=== PATIENT | female | born 1945 | race Two or more races ===

== ENCOUNTER 2019-08-29 20:08 | Inpatient (IN) | payer MEDICAID ==
[~2019-08-29] VITALS: Ht 157.5 cm; Wt 54.0 kg
--- NOTE | 2019-08-29 20:20 | NUR ---
RT NOTE PT RECEIVED TRACHED ON MECHANICAL VENTILATION. SHILEY [address] PT AWAKE, NONVERBAL. SX DONE, SMALL THICK YELLOW WHITE SECRETIONS NOTED. ALARMS ON AND AUDIBLE. VENT PLUGGED TO RED OUTLET. NO DISTRESS NOTED AT THIS TIME. WILL CONTINUE TO MONITOR. Addendum: 08/30/19 at 0324 by DAMEON SMITH RT Amended: Links added.
[2019-08-29] MEDS ORDERED: IV NS 0.9% 1,000 ML IV ONE ×2 (20:31→22:00)
[2019-08-29 21:12] LABS: BASOPHILS % (AUTO) 0.4 % (0.0-2.0); EOSINOPHILS % (AUTO) 0.5 % (0.0-6.0); HEMATOCRIT 34 % (33-45); HEMOGLOBIN 11.4 g/dL (11.5-14.8); LYMPHOCYTES # (AUTO) 1.9 /CMM (0.8-4.8); LYMPHOCYTES % (AUTO) 17.3 % (20.0-44.0); MEAN CORPUSCULAR HGB CONC 33 g/dl (31.0-36.0); MEAN CORPUSCULAR VOLUME 97 fL (82-100); MONOCYTES # (AUTO) 0.6 /CMM (0.1-1.30); MONOCYTES % (AUTO) 5.4 % (2.0-12.0); NEUTROPHILS # (AUTO) 8.2 /CMM (1.8-8.9); NEUTROPHILS % (AUTO) 76.4 % (43.0-81.0); PLATELET COUNT (AUTO) 351 /CMM (150-450); RED BLOOD CELL COUNT(AUTO) 3.51 MIL/uL (4.0-5.2); WHITE BLOOD COUNT (AUTO) 10.8 K/uL (4.3-11.0)
[2019-08-29 21:22] LABS: CALCIUM, SERUM 9.5 mg/dL (8.5-10.1); CARBON DIOXIDE 25 mmol/L (21-32); CHLORIDE 104 mmol/L (98-107); CREATININE 0.6 mg/dL (0.6-1.3); GLUCOSE 159 mg/dL (74-106); POTASSIUM 4.1 mmol/L (3.5-5.1); SODIUM SERUM 140 mmol/L (136-145); UREA NITROGEN, BLOOD 23 mg/dL (7-18)
--- NOTE | 2019-08-29 21:25 | NUR ---
BIBPA C/O ALTERED MENTAL STATUS. PT NON VERBAL/EYES OPEN ONLY. RR EVEN & UNLABORED. NO RESP DISTRESS NOTED. PT SEEN & EVAL'D BY DR. ISSA. PLACED ON ASSOCIATE PROFESSOR OF LITERACY. COVID 19 WORK UP & SENT TO LAB. WILL CONT TO MONITOR.
[2019-08-29 21:38] LABS: ALANINE AMINOTRANSFERASE 42 U/L (12-78); ALBUMIN 3.3 g/dL (3.4-5.0); ALKALINE PHOSPHATASE 126 U/L (46-116); ASPARTATE AMINOTRANSFERASE 20 U/L (15-37); B-TYPE NATRIURETIC PEPTIDE 259 PG/ML (0-125); BILIRUBIN,TOTAL 0.5 mg/dL (0.2-1.0); TOTAL PROTEIN, SERUM 7.6 g/dL (6.4-8.2)
[2019-08-29 21:54] LABS: D-DIMER 0.66 mg/L(FEU (0.17-0.50)
[2019-08-29] MEDS ORDERED: INSULIN REGULAR, HUMAN 100 UNIT/ML 10 ML VIAL IV ONE (22:00)
[2019-08-29 22:32] LABS: APPEARANCE,URINE CLOUDY (CLEAR); BILIRUBIN,URINE NEGATIVE (NEGATIVE); BLOOD, URINE LARGE Ery/uL (NEGATIVE); COLOR,URINE YELLOW (YELLOW); KETONES,URINE NEGATIVE (NEGATIVE); LEUKOCYTE ESTERASE ,URINE LARGE (NEGATIVE); NITRITE, URINE NEGATIVE (NEGATIVE); PH,URINE 8.5 (5.0-8.0); PROTEIN,URINE TRACE mg/dl (NEGATIVE); UGLUCOSE NEGATIVE (NEGATIVE); UROBILINOGEN,URINE 0.2 EU/dL (0.2)
--- NOTE | 2019-08-29 22:49 | NUR ---
PT STABLE, VSS, RR EVEN & UNLABORED NAD NOTED @ THIS TIME. WILL CONT TO MONITOR.
--- NOTE | 2019-08-29 22:55 | NUR ---
Anna santana in [facility] - 08/29/19 at 2345 by YENIFER TONIO BRAVO ETA [id number]
[2019-08-29 23:05] LABS: BACTERIA,URINE Few /HPF (None Seen); RBC,URINE TOO NUMEROUS TO COUN /HPF (0-2); SQUAMOUS EPITHELIAL CELL,UR Few /HPF (None Seen); TRIPLE PHOSPHATE CRYSTAL,UR Few /HPF (None Seen)
[2019-08-29 23:18] LABS: C-REACTIVE PROTEIN < 0.2 mg/dL (0.0-0.9)
[2019-08-29 23:42] LABS: CREATINE KINASE, TOTAL 126 U/L (26-192); FERRITIN 419 ng/mL (8-388)
--- NOTE | 2019-08-29 23:45 | NUR ---
TINY KHOURY, GRUPO AT BEDSIDE FOR EVALUATION
[2019-08-30] VITALS (7 sets, daily range): BP systolic 130–159; BP diastolic 50–77
[2019-08-30] MEDS ORDERED: HYDROCODONE/APAP 5/325MG 1 EACH TABLET GT PRN
[2019-08-30] MEDS ORDERED: MAG HYDROX/AL HYDROX/SIMETH 30 ML UDC PO PRN
[2019-08-30] MEDS ORDERED: Z GUARD REMEDY 2 OZ OINT TP PRN
[2019-08-30] MEDS ORDERED: ONDANSETRON HCL/PF 4 MG/2 ML VIAL IVP PRN
--- NOTE | 2019-08-30 00:43 | NUR ---
BED ASSIGNMENT 113-2
[2019-08-30] MEDS ORDERED: INSU100V SQ (01:00)
[2019-08-30] MEDS ORDERED: ATOR10TA GT (01:00)
[2019-08-30] MEDS ORDERED: RIVA10TA GT (01:00)
[2019-08-30] MEDS ORDERED: MAGN400O21 PO (01:00)
[2019-08-30] MEDS ORDERED: METO25TA20 GT (01:00)
[2019-08-30] MEDS ORDERED: BISA10EN RC (01:00)
--- NOTE | 2019-08-30 01:01 | NUR ---
REPORT GIVEN TO KRISTOPHER GONZALEZ FOR VIKAS.
--- NOTE | 2019-08-30 01:20 | NUR ---
PT TRANSFERED PER ACLS PROTOCOL
--- NOTE | 2019-08-30 01:21 | NUR ---
COPPER MINER NOTES Received patient from ER accompanied by ER staff with RT via gurney. Admitted to tele 113-1 due to PNA-POA and UTI-POA under the service of GRUPO [place]. Transferred patient to bed comfortably. Patient tolerating well on current vent settings, no SOB/respiratory distress noted, saturating 100%. With G-tube for feeding, clamped. Admission orders noted and carried out. Initial skin assessment done, photos taken and documented. With peripheral IV line L Hand G#20, SL, patent, no s/sx of infiltration noted. Patient noted with BUE/BLE contractures. Kept patient on bed clean, dry and comfortable. On fall and aspiration precautions. On contact/droplet isolation precautions. On tele monitor with NSR noted. No s/sx of discomfort/distress noted at this time. Will continue to monitor accordingly.
[2019-08-30] MEDS ORDERED: GLUCERNA 1.2 1,000 ML BOTTLE NG PRN ×3 (01:30)
[2019-08-30] MEDS ORDERED: DEXTROSE 50%-WATER 50 ML DISP.SYRIN IV PRN (01:30)
--- NOTE | 2019-08-30 01:47 | NUR ---
RT NOTE PT TRANSFERRED TO [facility] VIA VENTILATOR. SX DONE, TRACH SECURED AND PATENT. ALARMS ON AND AUDIBLE. NO DISTRESS NOTED. VENT PLUGGED TO RED OUTLET. WILL MONITOR T/O SHIFT.
[2019-08-30 02:05] LABS: ABG BASE EXCESS -0.8 mmol/L; ABG OXYGEN SATURATION 98.1 % (92.0-98.5); ABG PH 7.471 (7.350-7.450); ABG PO2 134.7 mmHg (75.0-100.0); AaDO2 42.8 mmHg; COHb 0.2 % (0.5-1.5); MetHb 0.6 % (0.0-1.5); O2Hb 97.3 % (94.0-97.0); SITE, ABG Left Radial
[2019-08-30] MEDS: IV NS 0.9% 1,000 ML IV PRN ×2 (02:25→16:53)
--- NOTE | 2019-08-30 03:56 | NUR ---
RN NOTES - POLST STATUS Called to [facility] [phone], the facility patient is from prior to this present admission. Spoke to Tila regarding patient's code status and asked to fax a copy of POLST. Per Tila patient is Full code but could not find the POLST copy at this time thus to follow up in the AM shift. Provided fax number to [facility], will endorsed to next shift RN.
[2019-08-30] MEDS: BLOOD SUGAR DIAGNOSTIC 1 EACH STRIP IN SCH ×3 (05:35→16:53)
--- NOTE | 2019-08-30 06:14 | NUR ---
RN CLOSING NOTES Patient asleep on bed. On vent with current settings tolerated well, no SOB/respiratory distress noted, saturating well. No s/sx of discomfort/distress noted at this time. On tele monitor with NSR noted. All nursing needs attended, no new unusualities noted. Kept on bed clean dry and comfortable. On fall and aspiration precautions. Will continue to monitor accordingly.
[2019-08-30 06:27] LABS: BASOPHILS % (AUTO) 0.3 % (0.0-2.0); EOSINOPHILS % (AUTO) 3.4 % (0.0-6.0); HEMATOCRIT 33 % (33-45); HEMOGLOBIN 10.7 g/dL (11.5-14.8); LYMPHOCYTES # (AUTO) 1.7 /CMM (0.8-4.8); LYMPHOCYTES % (AUTO) 15.1 % (20.0-44.0); MEAN CORPUSCULAR HGB CONC 33 g/dl (31.0-36.0); MEAN CORPUSCULAR VOLUME 97 fL (82-100); MONOCYTES # (AUTO) 0.7 /CMM (0.1-1.30); MONOCYTES % (AUTO) 6.2 % (2.0-12.0); NEUTROPHILS # (AUTO) 8.3 /CMM (1.8-8.9); PLATELET COUNT (AUTO) 316 /CMM (150-450); RED BLOOD CELL COUNT(AUTO) 3.36 MIL/uL (4.0-5.2); WHITE BLOOD COUNT (AUTO) 11.1 K/uL (4.3-11.0)
[2019-08-30 07:00] LABS: CALCIUM, SERUM 8.9 mg/dL (8.5-10.1); CREATININE 0.6 mg/dL (0.6-1.3); MAGNESIUM 2.1 mg/dL (1.8-2.4); PHOSPHORUS 3.6 mg/dL (2.5-4.9); POTASSIUM 3.5 mmol/L (3.5-5.1)
[2019-08-30 07:11] LABS: THYROID STIMULATING HORMONE 3.463 uIU/mL (0.358-3.74)
--- NOTE | 2019-08-30 07:30 | NUR ---
Tele/RN Opening note Received patient in bed, able to responds all stimuli. Pt does no appears pain or any discomfort, skin is warm to touch, kept clean/dry. Pt is on ventilator, no s/s of respiratory distress, o2sat 99-100%. Kept lower position of the bed with locked wheel and elevated head of bed for secure air way. Call light within reach, will continue to monitor.
[2019-08-30] MEDS ORDERED: ACET-2605 GT (07:59)
[2019-08-30] MEDS ORDERED: ALBU1.257 IH ×2 (07:59)
[2019-08-30] MEDS ORDERED: OMEP20TA20 GT (07:59)
[2019-08-30] MEDS ORDERED: ONDA4TAB5 GT (07:59)
[2019-08-30] MEDS ORDERED: MAGN400O6 GT (07:59)
[2019-08-30] MEDS ORDERED: INSU100V7 SQ (07:59)
[2019-08-30] MEDS ORDERED: ACET-868 GT (07:59)
[2019-08-30] MEDS ORDERED: GEL100GE TD (07:59)
[2019-08-30] MEDS ORDERED: NUT.237L30 GT (07:59)
[2019-08-30] MEDS: DOXYCYCLINE HYCLATE (100 MG) 100 MG TABLET GT SCH (08:33)
[2019-08-30] MEDS ORDERED: MAG HYDROX/AL HYDROX/SIMETH 30 ML UDC GT PRN (08:44)
[2019-08-30] MEDS ORDERED: CEFEPIME 1 GM in IV D5W 50 ML IV SCH (09:00)
[2019-08-30] MEDS: CEFEPIME 2 GM in IV D5W 100 ML IV SCH ×2 (09:02→21:56)
--- NOTE | 2019-08-30 11:50 | NUR ---
Spoke with [facility] regarding POLSTfax over to us, Addendum: 08/30/19 at 1529 by MACK TYLER RN Error
[2019-08-30] MEDS: INSULIN REGULAR, HUMAN 100 UNIT/ML 3 ML VIAL SQ PRN ×2 (12:12→18:13)
--- NOTE | 2019-08-30 15:29 | NUR ---
Spoke with [facility] who will POLST fax to us,
--- NOTE | 2019-08-30 17:00 | NUR ---
Collected Urine Cx, called Lab to ready burr picker.
--- NOTE | 2019-08-30 18:30 | NUR ---
Tele/RN Closing note Patient in bed, sleeping comfortably, does no appears pain or any discomfort. Pt is on ventilator and tolerated, no sob or distress observed. Skin is warm to touch, kept clean/dry, intact IV site. No residual observed from g tube. Kept low position of the bed with locked wheel and elevated head of bed for secure airway. Call light within reach, will endorse night clerk auditor.
[2019-08-31] VITALS: BP 147/75
--- NOTE | 2019-08-31 00:22 | NUR ---
BLOOD SUGAR [id number], NO INSULIN GIVEN.
--- NOTE | 2019-08-31 01:29 | NUR ---
PATIENT HAD BM, CLEANSED AND KEPT DRIED. WITH SACRAL OPEN WOUND SKIN- APPLIED MEPILEX FOAM DRESSING, TURNED TO SIDE, HEELS OFFLOADED. WITH RASHES ON THE BACK NOTED. DRESSING ON THE G-TUBE SITE CHANGED. WITH VERY SMALL AMOUNT OF YELLOWISH DISCHARGES,NO ODOR, WITH VERY LITTLE REDNESS AROUND THE SITE. FEEDING IS OFF AT THIS TIME,WILL RESUME LATER. G-TUBE FLASHED WITH WATER AND CLAMPED. HOB ELEVATED AT ALL TIMES. BED ALARM ON. BED IN LOWEST AND LOCKED POSITION. RIGHT HIP OPEN WOUND WITH SMALL AMOUNT OF DISCHARGES NOTED, MEPILEX FOAM DRESSING CHANGED.
[2019-08-31 04:00] VITALS: BP 146/66
[2019-08-31] MEDS: GLUCERNA 1.2 1,000 ML BOTTLE NG PRN (05:28)
--- NOTE | 2019-08-31 05:30 | NUR ---
G-TUBE FLASHED WITH WATER AND FEEDING STARTED AT 55ML/HR FOR 20 HOURS. HOB ELEVATED.
[2019-08-31] MEDS: BLOOD SUGAR DIAGNOSTIC 1 EACH STRIP IN SCH ×4 (06:00→17:31)
--- NOTE | 2019-08-31 06:02 | NUR ---
BLOOD SUGAR [id number].NO INSULIN GIVEN.
--- NOTE | 2019-08-31 06:36 | NUR ---
GEAR HOBBER SET UP OPERATOR CLOSING NOTES: PATIENT IN BED, AWAKE, NON-VERBAL. CONTRACTED. G-TUBE FEEDING RUNNING AT 55ML/HOUR. HOB ELEVATED. BED ALARM ON. BED IN LOWEST AND LOCKED POSITION, COVID ISOLATION OBSERVED AT ALL TIMES.WITH MANCUSO CATHETER INTACT. NO SOB NOTED.
[2019-08-31 06:51] LABS: BASOPHILS % (AUTO) 0.4 % (0.0-2.0); HEMATOCRIT 32 % (33-45); HEMOGLOBIN 10.7 g/dL (11.5-14.8); LYMPHOCYTES # (AUTO) 1.4 /CMM (0.8-4.8); LYMPHOCYTES % (AUTO) 14.6 % (20.0-44.0); MEAN CORPUSCULAR HGB CONC 34 g/dl (31.0-36.0); MEAN CORPUSCULAR VOLUME 96 fL (82-100); MONOCYTES # (AUTO) 0.4 /CMM (0.1-1.30); MONOCYTES % (AUTO) 4.7 % (2.0-12.0); NEUTROPHILS # (AUTO) 6.8 /CMM (1.8-8.9); NEUTROPHILS % (AUTO) 72.3 % (43.0-81.0); PLATELET COUNT (AUTO) 303 /CMM (150-450); RED BLOOD CELL COUNT(AUTO) 3.27 MIL/uL (4.0-5.2); WHITE BLOOD COUNT (AUTO) 9.4 K/uL (4.3-11.0)
[2019-08-31 07:17] LABS: CALCIUM, SERUM 9.1 mg/dL (8.5-10.1); CARBON DIOXIDE 23 mmol/L (21-32); CHLORIDE 108 mmol/L (98-107); CREATININE 0.5 mg/dL (0.6-1.3); GLUCOSE 123 mg/dL (74-106); POTASSIUM 3.4 mmol/L (3.5-5.1); SODIUM SERUM 142 mmol/L (136-145); UREA NITROGEN, BLOOD 16 mg/dL (7-18)
[2019-08-31 08:00] VITALS: BP 133/72
--- NOTE | 2019-08-31 08:01 | NUR ---
CLOTH PRINTING UTILITY WORKER NOTES PATIENT IN BED RESTING NO SOB OR ACUTE DISTRESS NOTED. PATIENT ON VENT, SETTINGS NOTED. BED IN LOW LOCKED POSITION. CALL LIGHT WITHIN REACH. WILL CONTINUE TO MONITOR.
[2019-08-31] MEDS: CEFEPIME 2 GM in IV D5W 100 ML IV SCH ×2 (08:58→20:15)
[2019-08-31] MEDS: DOXYCYCLINE HYCLATE (100 MG) 100 MG TABLET GT SCH (08:58)
--- NOTE | 2019-08-31 08:58 | NUR ---
WOUND CARE CONSULT: REVIEWED ADMISSION PHOTOS, CHART AND NURSING DOCUMENTATION WELL SENDING FACILITY DOCUMENTATION WHICH INDICATES RT AND LEFT HIP WOUNDS AND SACRAL WOUND, PRESENT ON ADMISSION. RECOMMEND SURGICAL CONSULT. DR JONES NOTIFIED OF CONSULT REQUEST. ALL SKIN PROTECTION RECOMMENDATIONS DISCUSSED WITH NURSING STAFF. MD IN AGREEMENT WITH PLAN OF CARE. WILL SEE PRN. CURRENT NEREYDA SCORE IS 12. FIRST STEP LOW AIRLOSS MATTRESS ORDERED.
[2019-08-31] MEDS ORDERED: POTASSIUM CHLORIDE 20 MEQ POWDER PACKET GT SCH (11:00)
[2019-08-31 12:00] VITALS: BP 128/68
[2019-08-31 16:00] VITALS: BP 130/76
[2019-08-31] MEDS: IV NS 0.9% 1,000 ML IV PRN (16:17)
--- NOTE | 2019-08-31 18:36 | NUR ---
CAN CRIMPER NOTES PATIENT IN BED RESTING NO SOB OR ACUTE DISTRESS NOTED. ALL DUE MEDICATIONS ADMINISTERED. ALL NEEDS MET. NO ACUTE CHANGES NOTED DURING SHIFT. WILL ENDORSE CARE TO PM SHIFT.
--- NOTE | 2019-08-31 19:30 | NUR ---
METAL MACHINE SETTER OPENING NOTE RECEIVED PATIENT IN BED. A/OX1, NONVERBAL, OPENS EYES. ON MECHANICAL VENTILATOR AC 18, TV 400 FIO2 30%, PEEP 5. NO S/S RESP DISTRESS NOTES. NO S/S PAIN AT THIS TIME. EXTERNAL TELE MONITOR READS SINUS RHYTHM HR 85. IN NO APPARENT DISTRESS. IV ACCESS IN LEFT HAND#20 RUNNING NS@75ML/HR. MANCUSO CATHETER IS PRESENT, DRAINING TO GRAVITY, URINE IS YELLOW. GTUBE IS PRESENT, ASPIRATED, RESIDUAL 10ML, FLUSHED WITH 60ML WITH NO RESISTANCE, RUNNING GLUCERNA 1.2 @55ML/HR. BED IS LOW AND LOCKED, HOB ELEVATED IN SEMI FOWLERS, SIDE RAILS UP X2, EXTREMITIES OFFLOADED. CALL LIGHT WITHIN REACH. WILL CONTINUE TO MONITOR.
[2019-08-31 20:00] VITALS: BP 153/81
--- NOTE | 2019-08-31 22:35 | NUR ---
SURGICAL ONCOLOGIST NOTE PATIENT HAS AN EPISODE OF EMESIS WHEN BEING CHANGED. ZOFRAN 4MG WAS GIVEN. WILL CONTINUE TO MONITOR.
[2019-09-01] VITALS: BP 160/71
[2019-09-01] MEDS: BLOOD SUGAR DIAGNOSTIC 1 EACH STRIP IN SCH ×4 (00:01→18:07)
[2019-09-01] MEDS: INSULIN REGULAR, HUMAN 100 UNIT/ML 3 ML VIAL SQ PRN ×2 (00:09→18:11)
[2019-09-01 04:00] VITALS: BP 120/58
--- NOTE | 2019-09-01 05:45 | NUR ---
RT PATIENT WAS RECEIVED ON CONTINUOUS VENT SUPPORT ON NOTED VENT SETTINGS.ALARMS ARE ON AND AUDIBLE.VENT PLUGGED INTO RED OUTLET.SUCTIONED PATIENT WITH A MODERATE AMOUNT OF THIN WHITE YELLOWISH SECRETIONS.AIRWAY PATENT AND SECURED. WILL CONTINUE TO MONITOR. Addendum: 09/01/[address] RT Amended: Links added.
[2019-09-01] MEDS: GLUCERNA 1.2 1,000 ML BOTTLE NG PRN (06:19)
[2019-09-01 06:29] LABS: BASOPHILS % (AUTO) 0.2 % (0.0-2.0); EOSINOPHILS % (AUTO) 6.1 % (0.0-6.0); HEMATOCRIT 32 % (33-45); HEMOGLOBIN 11.1 g/dL (11.5-14.8); LYMPHOCYTES # (AUTO) 1.5 /CMM (0.8-4.8); MEAN CORPUSCULAR HGB CONC 34 g/dl (31.0-36.0); MEAN CORPUSCULAR VOLUME 96 fL (82-100); MONOCYTES # (AUTO) 0.5 /CMM (0.1-1.30); MONOCYTES % (AUTO) 5.4 % (2.0-12.0); NEUTROPHILS # (AUTO) 7.5 /CMM (1.8-8.9); NEUTROPHILS % (AUTO) 73.3 % (43.0-81.0); PLATELET COUNT (AUTO) 280 /CMM (150-450); RED BLOOD CELL COUNT(AUTO) 3.38 MIL/uL (4.0-5.2); WHITE BLOOD COUNT (AUTO) 10.2 K/uL (4.3-11.0)
[2019-09-01 06:52] LABS: CALCIUM, SERUM 9.3 mg/dL (8.5-10.1); CREATININE 0.6 mg/dL (0.6-1.3); POTASSIUM 3.9 mmol/L (3.5-5.1)
--- NOTE | 2019-09-01 06:53 | NUR ---
AUDIT INTERN CLOSING NOTE PATIENT IN BED. A/OX1, NONVERBAL, OPENS EYES. REMAINS ON MECHANICAL VENTILATOR AC 18, TV 400 FIO2 30%, PEEP 5. NO RESP DISTRESS NOTED. NO PAIN NOTED. EXTERNAL TELE MONITOR READS SINUS RHYTHM HR 85. NO DISTRESS NOTED. IV ACCESS MAINTAINED IN LEFT HAND#20 RUNNING NS@75ML/HR. MANCUSO CATHETER IS PRESENT, DRAINING TO GRAVITY, URINE IS YELLOW, OUTPUT 625. GTUBE IS PRESENT, RUNNING GLUCERNA 1.2 @55ML/HR. BED REMAINS LOW AND LOCKED, HOB ELEVATED IN SEMI FOWLERS, SIDE RAILS UP X2, EXTREMITIES OFFLOADED. CALL LIGHT WITHIN REACH. WILL ENDORSE TO NEXT SHIFT
--- NOTE | 2019-09-01 07:00 | NUR ---
flag signaler notes Patient up in bed, not in acute distress. Non-verbal , opens eyes. remains on mechanical ventilator AC 18. Breathing even, no respiratory distress noted. No s/s of pain or discomfort noted. IV patent , NS @ 75/ml. Turned and repositioned for comfort. Rivas draining with cloudy urine. G-tube with Glucerna 1.2 @ 55/ml. No s/s of hypo/hyperglycemia noted. HOB elevated at all times. Safety measures intact. Will cont to monitor
[2019-09-01 08:00] VITALS: BP 137/63
[2019-09-01] MEDS: DOXYCYCLINE HYCLATE (100 MG) 100 MG TABLET GT SCH (08:38)
[2019-09-01] MEDS: CEFEPIME 2 GM in IV D5W 100 ML IV SCH ×2 (08:38→21:02)
[2019-09-01 12:00] VITALS: BP 145/72
[2019-09-01 16:00] VITALS: BP 131/73
--- NOTE | 2019-09-01 19:15 | NUR ---
RN OPENING NOTES RECEIVED PATIENT RESTING IN BED, NONVERBAL, OPENS EYES. NO DISTRESS NOTED. ON TELE MONITOR SR WITH HR 70'S. MECHANICAL VENT TRACH SETTINGS ORDERED, TOLERATING WELL, NO SOB OR RESPIRATORY DISTRESS NOTED. IV SITE LEFT HAND 20G FLUSHING AND PATENT, 0.9 NS RUNNING AT 75ML/HR, TOLERATING WELL. MANCUSO CATH INTACT AND DRAINING WELL. GTUBE FLUSHING AND PATENT, FEEDING RUNNING AT 55ML/HR, MINIMAL RESIDUAL NOTED. SAFETY MEASURES IN PLACE; HOB ELEVATED, CALL LIGHT WITHIN REACH, BED IS IN LOWEST AND LOCKED POSITION, SIDE RAILS UP X2, BED ALARM ON. WILL CONT TO MONITOR CLOSELY.
[2019-09-01 20:00] VITALS: BP 134/56
[2019-09-01] MEDS: ACETAMINOPHEN 325 MG TABLET MC PRN (20:34)
--- NOTE | 2019-09-01 20:36 | NUR ---
RN NOTES PATIENT NOTED WITH FEVER TEMP 101.6 VIA AXILLARY, COOLING MEASURES PLACED, TYLENOL GIVEN. WILL RECHECK TEMP IN 1 HR. WILL CONT TO MONITOR PT CLOSELY.
--- NOTE | 2019-09-01 21:54 | NUR ---
RN NOTES RECHECKED PATIENT TEMP STILL ELEVATED, 100F VIA AXILLARY, COOLING MEASURES MAINTAINED, ICE PACKS PLACED ON ARMPITS. WILL CONT TO MONITOR.
[2019-09-02] VITALS: BP 129/57
[2019-09-02] MEDS: BLOOD SUGAR DIAGNOSTIC 1 EACH STRIP IN SCH ×4 (00:38→17:09)
[2019-09-02] MEDS: IV NS 0.9% 1,000 ML IV PRN (00:47)
[2019-09-02] MEDS: GLUCERNA 1.2 1,000 ML BOTTLE NG PRN ×2 (00:49→21:02)
[2019-09-02] MEDS: INSULIN REGULAR, HUMAN 100 UNIT/ML 3 ML VIAL SQ PRN (00:50)
--- NOTE | 2019-09-02 01:46 | NUR ---
RT NOTE Pt rec'd trached on [facility] vent on AC mode. Pt shows no signs of resp distress or sob. Pt sx'd for thick small amt of pale yellow secretions. Trach is patent and secured. Alarms are set and audible. Ambu bag bedside. Vent plugged into red outlet. Will continue to monitor. Addendum: 09/02/19 at 0148 by VIOLET ROBBINS RT Amended: Links added.
--- NOTE | 2019-09-02 03:50 | NUR ---
RN NOTES FOLLOW UP CALL MADE TO LAB SINCE COVID RESULT IS STILL PENDING SINCE 08/29/2019. Nam ARRIAZA FROM LAB CALLED BACK AFTER CHECKING AND RESULT IS NEGATIVE. ALSO REQUESTED TO CHECK ON THE RESULT FOR INFLUENZA. PRIMARY RN, CAMILA NOTIFIED
[2019-09-02 04:00] VITALS: BP 125/50
--- NOTE | 2019-09-02 07:15 | NUR ---
RN CLOSING NOTES PATIENT RESTING IN BED, NONVERBAL, OPENS EYES. ON TELE MONITOR SR WITH HR 80'S. NOW AFEBRILE. MECHANICAL VENT TRACH SETTINGS ORDERED, TOLERATING WELL, NO SOB OR RESPIRATORY DISTRESS NOTED. SATURATING 100%. IV SITE LEFT HAND 20G FLUSHING AND PATENT, 0.9 NS RUNNING AT 75ML/HR, TOLERATING WELL. MANCUSO CATH INTACT AND DRAINING WELL. PATIENT COVID19 SWAB NEGATIVE RESULT. ALL MD ORDERS ATTENDED, ALL NEEDS ANTICIPATED AND MET. SAFETY MEASURES IN PLACE; HOB ELEVATED, CALL LIGHT WITHIN REACH, BED IS IN LOWEST AND LOCKED POSITION, SIDE RAILS UP X2, BED ALARM ON. ENDORSED TO AM RN FOR VIKAS.
[2019-09-02 07:21] LABS: BASOPHILS % (AUTO) 0.2 % (0.0-2.0); EOSINOPHILS % (AUTO) 7.9 % (0.0-6.0); HEMATOCRIT 33 % (33-45); HEMOGLOBIN 11.1 g/dL (11.5-14.8); LYMPHOCYTES # (AUTO) 1.7 /CMM (0.8-4.8); LYMPHOCYTES % (AUTO) 17.8 % (20.0-44.0); MEAN CORPUSCULAR HGB CONC 34 g/dl (31.0-36.0); MEAN CORPUSCULAR VOLUME 98 fL (82-100); MONOCYTES # (AUTO) 0.5 /CMM (0.1-1.30); MONOCYTES % (AUTO) 5.4 % (2.0-12.0); NEUTROPHILS # (AUTO) 6.4 /CMM (1.8-8.9); NEUTROPHILS % (AUTO) 68.7 % (43.0-81.0); PLATELET COUNT (AUTO) 276 /CMM (150-450); RED BLOOD CELL COUNT(AUTO) 3.39 MIL/uL (4.0-5.2); WHITE BLOOD COUNT (AUTO) 9.3 K/uL (4.3-11.0)
[2019-09-02 07:40] LABS: CALCIUM, SERUM 9.4 mg/dL (8.5-10.1); CREATININE 0.6 mg/dL (0.6-1.3); POTASSIUM 4.3 mmol/L (3.5-5.1)
[2019-09-02 08:00] VITALS: BP 122/65
--- NOTE | 2019-09-02 08:00 | NUR ---
disk grinder notes Patient in bed, not in acute distress. HOB elevated at all times. On mechanical ventilator , oxygen sats 100%.Patient nonverbal. SR on the monitor. Glucerna 1.2 at 55 ml/hr via g-tube, tolerated well. No s/s of hypo/hyperglycemia noted. Rivas cath draining with elaine colored urine. Safety measures intact. Turned and repositioned for comfort. Will cont to monitor
[2019-09-02] MEDS: CEFEPIME 2 GM in IV D5W 100 ML IV SCH ×2 (09:03→20:39)
[2019-09-02] MEDS: DOXYCYCLINE HYCLATE (100 MG) 100 MG TABLET GT SCH (09:03)
[2019-09-02 12:00] VITALS: BP 140/76
[2019-09-02 16:00] VITALS: BP 131/64
--- NOTE | 2019-09-02 18:58 | NUR ---
data governance consultant closing notes Patient up in bed, not in acute distress. Rivas draining with elaine colored urine. G-tube patent and tolerated well.HOB elevated at all times. Afebrile. Safety measures intact. Will endorse to warehouse worker 2nd shift RN
[2019-09-02 20:00] VITALS: BP_SYST 134; BP_SYST 151; BP_DIAS 68; BP_DIAS 69
--- NOTE | 2019-09-02 20:15 | NUR ---
PARK WARDEN OPENING NOTE RECEIVED PATIENT FROM [facility]. PATIENT IN BED. A/OX1, NONVERBAL, OPENS EYES. ON MECHANICAL VENTILATOR AC 18, TV 400 FIO2 30%, PEEP 5. NO S/S RESP DISTRESS NOTES. NO S/S PAIN AT THIS TIME. EXTERNAL TELE MONITOR READS SINUS RHYTHM HR 68. IN NO APPARENT DISTRESS. IV ACCESS IN LEFT HAND#20 PATENT AND SALINE LOCKED. MANCUSO CATHETER IS PRESENT, DRAINING TO GRAVITY, URINE IS YELLOW. GTUBE IS PRESENT, ASPIRATED, RESIDUAL 10ML, FLUSHED WITH 60ML WITH NO RESISTANCE, RUNNING GLUCERNA 1.2 @55ML/HR. BED IS LOW AND LOCKED, HOB ELEVATED IN SEMI FOWLERS, SIDE RAILS UP X2, EXTREMITIES OFFLOADED. CALL LIGHT WITHIN REACH. WILL CONTINUE TO MONITOR.
--- NOTE | 2019-09-02 20:25 | NUR ---
STEEL SAMPLER NOTES REPORT GIVEN AND DROPPED PT OFF IN 3W WITH RN SOLOMON IN COMPLIANCE W/ACLS PROTOCOL. NAD AND NO SOB NOTED.
[2019-09-02] MEDS: ACETAMINOPHEN 325 MG TABLET MC PRN (21:01)
--- NOTE | 2019-09-02 21:01 | NUR ---
BURRING WHEEL OPERATOR NOTE ADMINISTERED PRN VSCKEIN644IP FOR LIGHT TEMP OF 99.6. WILL CONTINUE TO MONITOR.
--- NOTE | 2019-09-02 22:33 | NUR ---
WIND TURBINE ERECTOR NOTE TEMP NOW 98.4. WILL CONTINUE TO MONITOR.
[2019-09-03] VITALS: BP 115/59
[2019-09-03] MEDS: BLOOD SUGAR DIAGNOSTIC 1 EACH STRIP IN SCH ×4 (00:19→17:36)
[2019-09-03] MEDS: INSULIN REGULAR, HUMAN 100 UNIT/ML 3 ML VIAL SQ PRN (00:22)
[2019-09-03] MEDS ORDERED: CEFE2PIG2 IV (07:27)
[2019-09-03] MEDS ORDERED: DOXY100T2 GT (07:27)
--- NOTE | 2019-09-03 07:29 | NUR ---
ASSISTANT PARALEGAL CLOSING NOTE . PATIENT IN BED. A/OX1, REMAINS NONVERBAL, OPENS EYES. ON MECHANICAL VENTILATOR AC 18, TV 400 FIO2 30%, PEEP 5. NO S/S RESP DISTRESS NOTED. NO S/S PAIN. EXTERNAL TELE MONITOR READS SINUS RHYTHM HR 68. NO DISTRESS NOTED. IV ACCESS MAINTAINED IN LEFT HAND#20 PATENT AND SALINE LOCKED. MANCUSO CATHETER IS MAINTAINED, DRAINING TO GRAVITY, URINE IS YELLOW OUTPUT 400. GTUBE IS MAINTAINED, CURRENTLY CLAMPED BED IS LOW AND LOCKED, HOB ELEVATED IN SEMI FOWLERS, SIDE RAILS UP X2, EXTREMITIES OFFLOADED. CALL LIGHT WITHIN REACH. WILL ENDORSE TO NEXT SHIFT
--- NOTE | 2019-09-03 07:30 | NUR ---
tele biology specialist: md visit seen by dr. alonzo with order to d'c back to snf. order acknowledged. case management will make arrangement.
[2019-09-03 08:00] VITALS: BP 124/67
[2019-09-03] MEDS: DOXYCYCLINE HYCLATE (100 MG) 100 MG TABLET GT SCH (09:05)
[2019-09-03] MEDS: CEFEPIME 2 GM in IV D5W 100 ML IV SCH ×2 (09:15→20:02)
--- NOTE | 2019-09-03 09:30 | NUR ---
tele movie actor: pulmo f/u seen and examined by dr. de la fuente at this time.
--- NOTE | 2019-09-03 09:58 | NUR ---
RT NOTE PT RCVD TRACH'D ON MECHANICAL VENT WITH CHARTED SETTINGS. SX DONE. PT TRACH IS PATENT AND SECURE. VENT ALARMS ARE ON AND AUDIBLE. VENT PLUGGED INTO RED OUTLET. AMBU BAG AT BEDSIDE. NO SOB NOTED. Addendum: 09/03/19 at 0958 by MONI COLVIN RT Amended: Links added.
--- NOTE | 2019-09-03 10:00 | NUR ---
tele supervisor electronics inspection: notes am care rendered. tx done to wounds. turned and repositioned. kept comfortable. no distress noted. will continue to monitor.
[2019-09-03 12:00] VITALS: BP 114/62
--- NOTE | 2019-09-03 13:00 | NUR ---
m/s plastic process technician: notes left message to destiney (daughter) re: discharge to [facility]. also case management spoke to her about it and aware that she is going there and agreed.
--- NOTE | 2019-09-03 13:25 | NUR ---
tele cleaning custodian: notes [facility] given to [facility] and informed her that the eta waste picker at 1730.
--- NOTE | 2019-09-03 14:00 | NUR ---
tele site monitor: susan keane (rn) from [facility] called and wants antibiotic given early, informed her that pt is leaving at 1730 and too early to give or she wants hospital to send one med. call transfer to case management.
--- NOTE | 2019-09-03 14:23 | NUR ---
tele lunchroom mother: notes keith (regi) called and wants discharge to be push at 2130 per congregate ([place] [facility]) due to unable to give antibiotic at 2100. cn made aware.
[2019-09-03] MEDS ORDERED: VITAMINS A AND D 56.7 GM TUBE TP PRN (15:00)
[2019-09-03] MEDS: CLOTRIMAZOLE/BETAMETASONE DIPROPIONATE 15 GM TUBE TP SCH ×2 (15:57→17:13)
[2019-09-03 16:00] VITALS: BP 131/72
--- NOTE | 2019-09-03 16:00 | NUR ---
m/s credit control administrator: notes incontinent of bowel rendered. kept clean and dry. hob elevated. no distress noted. for jarad'jose jeffery.
--- NOTE | 2019-09-03 18:25 | NUR ---
tele director television news: id f/u gabino rosen (stores clerk) here and informed me that she's not gonna need another 5 days of cefepime ivpb and doxycycline antibiotic, stated, "i will write down my recommendations." left message to dr. alonzo via [employer] exchange. cn made aware.
--- NOTE | 2019-09-03 18:30 | NUR ---
m/s vehicle cost engineer: notes dr. alonzo called back and informed md re: id recommendation to stop doxycycline and last dose to given tonight of cefepime ivpb with order to discontinue prescriptions. andrae keane (rn) from [facility] notified and made aware of med changes.
--- NOTE | 2019-09-03 18:55 | NUR ---
tele elementary art teacher: notes gabino (construction scheduler) still here with order to change mcintosh today (before discharge). cn made aware. will endorse accordingly.
--- NOTE | 2019-09-03 19:15 | NUR ---
tele heat treat supervisor: notes report given to shy sorensen) for continuity of care.
--- NOTE | 2019-09-03 19:45 | NUR ---
RN OPENING NOTES RECEIVED REPORT FROM CHE ARMENDARIZ. Pt IS PENDING DISCHARGE TONIGHT TO [facility], SUPERVISOR FELLING BUCKING SCHEDULED FOR 2129. PER CHE ARMENDARIZ ALREADY CALLED AND GAVE REPORT TO [facility]. Pt IS OBTUNDED, WITH TRACH, VENT DEPENDENT; NON VERBAL, BUT CAN OPEN EYES AND WITHDRAWAL FROM TACTILE STIMULI AND PAIN. VENT SETTINGG: SHILEY #6, AC 18, TV 400, FIO2 30%, PEEP 5. ON TELE SR 68. PER DAYSHIFT REPORT, BEFORE DC TO GIVE LAST DOSE OF MAXIPIME 2GM IV & THEN REMOVE IV ACCESS PRIOR TO DC. AND TO CHANGE MANCUSO CATHETER TO NEW ONE PRIOR TO DC. WILL CARRY OUT ORDERS PRIOR TO Pt's DC. ON GTF GLUCERNA @55ML/HR OFF @0600, ON @1000. SAFETY MEASURES IN PLACE. WILL CONTINUE TO MONITOR Pt's CONDITION AND SAFETY UNTIL DISCHARGE.
--- NOTE | 2019-09-03 21:30 | NUR ---
RN NOTES LAST IV ABX MAXIPIME ADMINISTERED B4 DC. NEW MANCUSO CATHETER PLACED B4 DC. WAITING FOR AMBULANCE FOR LABOR EXPEDITER TRANSPORT FOR DC TO [facility].
--- NOTE | 2019-09-03 22:16 | NUR ---
MULTICULTURAL MANAGER NOTES REPORT GIVEN TO EMT AMBULANCE & RN AMBULANCE. IV ACCESS AND ID BAND REMOVED. Pt WAS TRANSPORTED [facility]. Pt LEFT FACILITY WITH NO S/S OF ACUTE DISTRESS OR SOB NOTED. VS STABLE.
== END 2019-09-03 22:15 | DRG 130 ==
LOC: ER 20:08 → TELE1 08-30 00:57 → TELE 09-02 20:15
PROVIDERS: ADMIT Nurse Practitioner Acute Care; ATTEND Family Medicine
PROC: 5A1955Z Respiratory Ventilation, Greater than 96 Consecutive Hours (ICD-10-PCS; principal; 2019-08-30)
DX: J15.9 Unspecified bacterial pneumonia (principal); G93.1 Anoxic brain damage, not elsewhere classified; L89.213 Pressure ulcer of right hip, stage 3; R53.2 Functional quadriplegia; J96.10 Chronic respiratory failure, unspecified whether with hypoxia or hypercapnia; D68.59 Other primary thrombophilia; R13.10 Dysphagia, unspecified; Z99.11 Dependence on respirator [ventilator] status; Z93.0 Tracheostomy status; Z86.74 Personal history of sudden cardiac arrest; I10 Essential (primary) hypertension; Z86.73 Personal history of transient ischemic attack (TIA), and cerebral infarction without residual deficits; Z93.1 Gastrostomy status; N39.0 Urinary tract infection, site not specified; Z74.01 Bed confinement status; M62.461 Contracture of muscle, right lower leg; E11.9 Type 2 diabetes mellitus without complications; L98.8 Other specified disorders of the skin and subcutaneous tissue; L85.3 Xerosis cutis; Z79.01 Long term (current) use of anticoagulants
CPT/HCPCS: 31720; 36415; 36600; 71045-TC; 80048-TC; 80053-TC; 80061-TC; 81000-TC; 82550-TC; 82728-TC; 82803-TC; 82962-TC; 83605-TC; 83615-TC; 83735-TC; 83880; 84100-TC; 84443-TC; 84484-TC; 85025-TC; 85378-TC; 85730-TC; 86140-TC; 87040-TC; 87081-TC; 87086-TC; 94002-TC; 94003-TC; 94760-TC; 94762-TC; 99082-TC; A6253; A6403; G0378; J0692; J1815; J2405; J7030; J7050; J7060